=== PATIENT | male | born 1970 | race African-American/Black ===

== ENCOUNTER 2024-09-26 10:38 | Emergency (ER) | payer OTHER, SELFPAY ==
[2024-09-26 10:59] VITALS: BP 135/100; PULSE 101; RESP 16; TEMP 36.6; O2SAT 100
--- OUTSIDE RECORDS SUMMARY | 2024-09-26 11:10 | XMS_ITS | Clinical Summary ---
Author Organization [address] Address [address] [place] [phone] Care Team Providers Care Engineering Equipment Operator Name Role Phone Unknown, Notinfile Primary Care Provider Unavail able Allergies No known active allergies Medications lisinopriL (PRINIVIL,ZESTRI L) 40 mg tablet Take 1 tablet (40 mg total) by mouth daily Active hydroCHLOROthiaz brittany (HYDRODIURIL) 25 mg tablet Take 1 tablet (25 mg total) by mouth daily Active atorvastatin (LIPITOR) 20 mg tablet Take 1 tablet (20 mg total) by mouth daily Active Active Problems No known active problems Encounters Date Type Department Care Team Description 09/26/2024 9:15 AM DYE AUTOMATION OPERATOR Office Visit [facility] Convenient Care at [address] [phone] Jojo Reed NP Dizziness (Primary Dx); Weight loss, unintentional from Last 3 Months Social History Tobacco Use Types Packs/Day Years Used Date Smoking Tobacco: Never Assessed Sex and Gender Information Value Date Recorded Sex Assigned at Not on file Legal Sex Male 8:40 AM DYE AUTOMATION OPERATOR Gender Identity Not on file Sexual Orientation Not on file Obstetrics History Last Filed Vital Signs Vital Sign Reading Time Taken Comments Blood Pressure 130/88 09/26/2024 9:29 AM DYE AUTOMATION OPERATOR Pulse 85 09/26/2024 9:29 AM DYE AUTOMATION OPERATOR Temperature 36.9 ??C (98.5 ??F) 09/26/2024 9:29 AM CS T Respiratory Rate 20 09/26/2024 9:29 AM DYE AUTOMATION OPERATOR Oxygen Saturation 98% 09/26/2024 9:29 AM DYE AUTOMATION OPERATOR Inhaled Oxygen Concentration - - Weight 79.4 kg (175 lb) 09/26/2024 9:29 AM DYE AUTOMATION OPERATOR Height - - Body Mass Index - - Plan of Treatment Health Maintenance Due Date Last Done Comments Colon Cancer Screening-Colonoscopy 1968 Depression Screening 1968 Hepatitis C Screening 1968 Prostate Cancer Screening-PSA 1968 DTaP/Tdap/Td Vaccine (1 - Tdap) 02/28/1979 Hepatitis B Screening 02/28/1986 Regular Well Visit/Exam 18-64 02/28/1986 Zoster Vaccine (1 of 2) 02/28/2018 Influenza Vaccine (#1) 2024 Pneumococcal vaccine <65 Aged Out No longer eligible based on patient's age to complete this topic Procedures Procedure Name Priority Date/Time Associated Diagnosis Comments POC INFLUENZA A/B, COVID-19 ANTIGEN Routine 09/26/2024 9:51 AM DYE AUTOMATION OPERATOR Dizziness from Last 3 Months Results * POC Influenza A/B, COVID-19 antigen (09/26/2024 9:51 AM DYE AUTOMATION OPERATOR) Influenza A Ag, POC Negative Negative [facility] Influenza B Ag, POC Negative Negative [facility] COVID-19 Ag POC Presumptive Negative Presumptive Negative, Invalid [facility] Nasal 09/26/2024 9:51 AM DYE AUTOMATION OPERATOR Jojo Reed NP POINT OF CARE TEST ORDERABLES Final Result [facility] [address] [place] [address], [facility] from Last 3 Months Insurance [address] [facility] HMO/PPO Address: [facility] [address] [place] [address] Care Teams Engineering Equipment Operator Relationship Specialty Start Date End Date Unknown, Notinfile PCP - General 09/26/24
--- OUTSIDE RECORDS SUMMARY | 2024-09-26 11:10 | XMS_ITS | Encounter Summary ---
Author Organization [facility] Healthcare Address [address] [place] [address] Care Team Providers Care Corporate Director Talent Assessment Name Role Phone Unknown, Notinfile Primary Care Provider Unavail able Reason for Visit * Reason Comments Cough Cough, lightheaded, dizziness, congestion, hot and chills, slight body aches x 2 days C/o decreased appetite x 1 month Encounter Details Date Type Department Care Team (Latest Contact Info) Description 09/26/2024 9:15 AM AVICULTURIST Office Visit [facility] Medical Group Convenient Care at [id number] [place] [address] Jojo Reed NP [address] [facility] [address] [place], [place] [id number] Dizziness (Primary Dx); Weight loss, unintentional Social History Tobacco Use Types Packs/Day Years Used Date Smoking Tobacco: Never Assessed Sex and Gender Information Value Date Recorded Sex Assigned at Not on file Legal Sex Male 8:40 AM AVICULTURIST Gender Identity Not on file Sexual Orientation Not on file documented as of this encounter Last Filed Vital Signs Vital Sign Reading Time Taken Comments Blood Pressure 130/88 09/26/2024 9:29 AM AVICULTURIST Pulse 85 09/26/2024 9:29 AM AVICULTURIST Temperature 36.9 ??C (98.5 ??F) 09/26/2024 9:29 AM CS T Respiratory Rate 20 09/26/2024 9:29 AM AVICULTURIST Oxygen Saturation 98% 09/26/2024 9:29 AM AVICULTURIST Inhaled Oxygen Concentration - - Weight 79.4 kg (175 lb) 09/26/2024 9:29 AM AVICULTURIST Height - - Body Mass Index - - documented in this encounter Progress Notes * Jojo Reed NP - 09/26/2024 9:15 AM CST Images from the original note were not included. Patient ID: Hector Antunez is a 54 y.o. male followed by Unknown, Notinfile Chief Complaint Patient presents with Cough Cough, lightheaded, dizziness, congestion, hot and chills, slight body aches x 2 days C/o decreased appetite x 1 month Patient presents to the clinic with reports of cough, congestion, hot/cold chills, and body aches for 2 days. Patient is also reporting episodes of lightheadedness and dizziness that have been happening 2 to 3 times a day for the past 2 weeks. Patient also reports a 35 lb weight loss in the past 2 months without trying. Patient is a smoker of cigars. Denies loss of consciousness, fevers, and rash. He has taken mucinex and cold medications for his symptoms. Review of Systems Constitutional: Positive for appetite change and fatigue. Negative for chills and fever. HENT: Positive for congestion. Negative for ear pain, postnasal drip, rhinorrhea, sinus pressure and sore throat. Eyes: Negative for visual disturbance. Respiratory: Positive for cough. Negative for shortness of breath and wheezing. Cardiovascular: Negative for chest pain. Gastrointestinal: Negative for nausea. Musculoskeletal: Positive for myalgias. Neurological: Positive for dizziness and light-headedness. Negative for seizures and headaches. Vitals: 09/26/24 0929 BP: 130/88 Pulse: 85 Resp: 20 Temp: 36.9 ??C (98.5 ??F) SpO2: 98% Weight: 79.4 kg (175 lb) Recent Results (from the past 24 hours) POC Influenza A/B, COVID-19 antigen Collection Time: 09/26/24 9:51 AM Result Value Ref Range Influenza A Ag, POC Negative Negative Influenza B Ag, POC Negative Negative COVID-19 Ag POC Presumptive Negative Presumptive Negative, Invalid Physical Exam Vitals reviewed. Constitutional: General: He is not in acute distress. Appearance: Normal appearance. He is ill-appearing. HENT: Head: Normocephalic. Right Ear: Tympanic membrane, ear canal and external ear normal. No middle ear effusion. Tympanic membrane is not erythematous or bulging. Left Ear: Tympanic membrane, ear canal and external ear normal. No middle ear effusion. Tympanic membrane is not erythematous or bulging. Nose: Congestion present. No rhinorrhea. Mouth/Throat: Lips: [place]. Mouth: Mucous membranes are moist. Pharynx: Uvula midline. No pharyngeal swelling, oropharyngeal exudate or posterior oropharyngeal erythema. Eyes: Extraocular Movements: Right eye: Normal extraocular motion and no nystagmus. Left eye: Normal extraocular motion and no nystagmus. Cardiovascular: Rate and Rhythm: Normal rate and regular rhythm. Pulmonary: Effort: Pulmonary effort is normal. No respiratory distress. Breath sounds: Normal breath sounds. No decreased breath sounds or wheezing. Lymphadenopathy: Cervical: No cervical adenopathy. Skin: General: Skin is warm. Neurological: General: No focal deficit present. Mental Status: He is oriented to person, place, and time. Cranial Nerves: Cranial nerves 2-12 are intact. Sensory: Sensation is intact. Coordination: Coordination is intact. Psychiatric: Behavior: Behavior is cooperative. Diagnoses and all orders for this visit: Dizziness (Primary) - POC Influenza A/B, COVID-19 antigen Weight loss, unintentional Orders Placed This Encounter Procedures POC Influenza A/B, COVID-19 antigen Order Specific Question: Is the Patient experiencing symptoms consistent with COVID? Answer: Yes Assessment/Plan --Sending patient to ER for further workup of dizziness and lightheadedness to rule out neurological etiology. Also concern for unintentional weight loss. Patient and significant other verbalized understanding and state they will go to the nearest ER. Disposition Treatment plan including expectations, follow up, and return precautions discussed with patient/parent, verbalizes understanding. Medication dosage, use, and potential adverse reactions discussed with patient/parent. Advised to follow up with PCP if symptoms do not resolve as expected or sooner if condition worsens. Discussed Signs/symptoms warranting ER evaluation including worsening fever, increased shortness ofbreath, chest pain, severe N/V/D, or any other worrisome symptoms Patient and/or guardian was given an opportunity to ask questions, questions answered. Patient Education --TO ER Jojo Reed NP This office note has been partially dictated using [employer] software, and as a result portions of the record may have been created with this software. Occasional wrong-word or '[id number]' substitutions may have occurred due to the inherent limitations of voice recognition software. Read the chartcarefully and recognize, using context, where substitutions have occurred. Cosigned by Tavo Mendoza MD at 09/26/2024 10:10 AM AVICULTURIST ULTURIST ULTURIST documented in this encounter Plan of Treatment Not on file documented as of this encounter Procedures Procedure Name Priority Date/Time Associated Diagnosis Comments POC INFLUENZA A/B, COVID-19 ANTIGEN Routine 09/26/2024 9:51 AM AVICULTURIST Dizziness documented in this encounter Results * POC Influenza A/B, COVID-19 antigen (09/26/2024 9:51 AM AVICULTURIST) Influenza A Ag, POC Negative Negative [facility] Influenza B Ag, POC Negative Negative [facility] COVID-19 Ag POC Presumptive Negative Presumptive Negative, Invalid [facility] Nasal 09/26/2024 9:51 AM AVICULTURIST Jojo Reed NP POINT OF CARE TEST ORDERABLES Final Result [facility] [address] documented in this encounter Visit Diagnoses Diagnosis Dizziness- Primary Dizziness and giddiness Weight loss, unintentional Loss of weight documented in this encounter Historical Medications * This list may reflect changes made after this encounter. atorvastatin (LIPITOR) 20 mg tablet Take 1 tablet (20 mg total) by mouth daily hydroCHLOROthiazi de (HYDRODIURIL) 25 mg tablet Take 1 tablet (25 mg total) by mouth daily lisinopriL (PRINIVIL,ZESTRIL ) 40 mg tablet Take 1 tablet (40 mg total) by mouth daily added in this encounter Care Teams Corporate Director Talent Assessment Relationship Specialty Start Date End Date Unknown, Notinfile PCP - General 09/26/24 documented as of this encounter
--- OUTSIDE RECORDS SUMMARY | 2024-09-26 11:10 | XMS_ITS | Referral Summary ---
Author Organization [address] Address [address] [place] [phone] Care Team Providers Care Casket Trimmer Name Role Phone Unknown, Notinfile Primary Care Provider Unavail able Encounters Date Type Department Care Team Description 09/26/2024 9:15 AM SPRAY II PAINTER Office Visit [facility] Medical Group Convenient Care at [address] [phone] Jjoo Reed NP Dizziness (Primary Dx); Weight loss, unintentional from Last 3 Months Allergies No known active allergies Medications lisinopriL (PRINIVIL,ZESTRI L) 40 mg tablet Take 1 tablet (40 mg total) by mouth daily Active hydroCHLOROthiaz brittany (HYDRODIURIL) 25 mg tablet Take 1 tablet (25 mg total) by mouth daily Active atorvastatin (LIPITOR) 20 mg tablet Take 1 tablet (20 mg total) by mouth daily Active Active Problems No known active problems Social History Tobacco Use Types Packs/Day Years Used Date Smoking Tobacco: Never Assessed Sex and Gender Information Value Date Recorded Sex Assigned at Not on file Legal Sex Male 8:40 AM SPRAY II PAINTER Gender Identity Not on file Sexual Orientation Not on file Last Filed Vital Signs Vital Sign Reading Time Taken Comments Blood Pressure 130/88 09/26/2024 9:29 AM SPRAY II PAINTER Pulse 85 09/26/2024 9:29 AM SPRAY II PAINTER Temperature 36.9 ??C (98.5 ??F) 09/26/2024 9:29 AM CS T Respiratory Rate 20 09/26/2024 9:29 AM SPRAY II PAINTER Oxygen Saturation 98% 09/26/2024 9:29 AM SPRAY II PAINTER Inhaled Oxygen Concentration - - Weight 79.4 kg (175 lb) 09/26/2024 9:29 AM SPRAY II PAINTER Height - - Body Mass Index - - Plan of Treatment Not on file Procedures Procedure Name Priority Date/Time Associated Diagnosis Comments POC INFLUENZA A/B, COVID-19 ANTIGEN Routine 09/26/2024 9:51 AM SPRAY II PAINTER Dizziness from Last 3 Months Results * POC Influenza A/B, COVID-19 antigen (09/26/2024 9:51 AM SPRAY II PAINTER) Influenza A Ag, POC Negative Negative [facility] Influenza B Ag, POC Negative Negative [facility] COVID-19 Ag POC Presumptive Negative Presumptive Negative, Invalid [facility] Nasal 09/26/2024 9:51 AM SPRAY II PAINTER Jojo Reed NP POINT OF CARE TEST ORDERABLES Final Result Performing Organization Address City/State/[facility] Co de Phone Number [facility] [address] [place] [address], [facility] from Last 3 Months Insurance [facility] H[facility]/PPO Address: [facility] [address] [place] [address] Care Teams Casket Trimmer Relationship Specialty Start Date End Date Unknown, Notinfile PCP - General 09/26/24
--- NOTE | 2024-09-26 12:59 | PC.NURSE ---
Patient reports that he is not staying to be seen-encouraged to return for worsening symptoms
--- OUTSIDE RECORDS SUMMARY | 2024-09-26 13:11 | XMS_ITS | Clinical Summary ---
Author Organization [address] Address [address] [place] [phone] Care Team Providers Care Bias Cutting Machine Operator Name Role Phone Unknown, Notinfile Primary [...] Department Care Team Description 09/26/2024 9:15 AM NEGATIVE CUTTER Office Visit [facility] Medical Group Convenient Care at [address] [phone] Jojo Reed NP Dizziness (Primary Dx); Weight loss, unintentional from Last 3 Months Social History Tobacco Use Types Packs/Day Years Used Date Smoking Tobacco: Never Assessed Sex and Gender Information Value Date Recorded Sex Assigned at Not on file Legal Sex Male 8:40 AM NEGATIVE CUTTER Gender Identity Not on file Sexual Orientation Not on file Obstetrics History Last Filed Vital Signs Vital Sign Reading Time Taken Comments Blood Pressure 130/88 09/26/2024 9:29 AM NEGATIVE CUTTER Pulse 85 09/26/2024 9:29 AM NEGATIVE CUTTER Temperature 36.9 ??C (98.5 ??F) 09/26/2024 9:29 AM CS T Respiratory Rate 20 09/26/2024 9:29 AM NEGATIVE CUTTER Oxygen Saturation 98% 09/26/2024 9:29 AM NEGATIVE CUTTER Inhaled Oxygen Concentration - - Weight 79.4 kg (175 lb) 09/26/2024 9:29 AM NEGATIVE CUTTER Height - - Body Mass Index - [...] A/B, COVID-19 ANTIGEN Routine 09/26/2024 9:51 AM NEGATIVE CUTTER Dizziness from Last 3 Months Results * POC Influenza A/B, COVID-19 antigen (09/26/2024 9:51 AM NEGATIVE CUTTER) Influenza A Ag, POC Negative Negative [facility] Influenza B Ag, POC Negative Negative [facility] COVID-19 Ag POC Presumptive Negative Presumptive Negative, Invalid [facility] Nasal 09/26/2024 9:51 AM NEGATIVE CUTTER Jojo Reed NP POINT OF CARE TEST ORDERABLES Final Result [facility] [address] [place] [address], [facility] from Last 3 Months Insurance [address] CHOICE [facility] H[facility]/PPO Address: [facility] [address] [place] [address] Care Teams Bias Cutting Machine Operator Relationship Specialty Start Date End Date Unknown, Notinfile PCP - General 09/26/24
--- OUTSIDE RECORDS SUMMARY | 2024-09-26 13:11 | XMS_ITS | Referral Summary ---
Author Organization [address] Address [address] [place] [phone] Care Team Providers Care Washroom Attendant Name Role Phone Unknown, Notinfile Primary Care Provider Unavail able Encounters Date Type Department Care Team Description 09/26/2024 9:15 AM LOAN REVIEW OFFICER Office Visit [facility] Medical Group Convenient Care at [address] [phone] Jojo Reed NP Dizziness (Primary [...] on file Legal Sex Male 8:40 AM LOAN REVIEW OFFICER Gender Identity Not on file Sexual Orientation Not on file Last Filed Vital Signs Vital Sign Reading Time Taken Comments Blood Pressure 130/88 09/26/2024 9:29 AM LOAN REVIEW OFFICER Pulse 85 09/26/2024 9:29 AM LOAN REVIEW OFFICER Temperature 36.9 ??C (98.5 ??F) 09/26/2024 9:29 AM CS T Respiratory Rate 20 09/26/2024 9:29 AM LOAN REVIEW OFFICER Oxygen Saturation 98% 09/26/2024 9:29 AM LOAN REVIEW OFFICER Inhaled Oxygen Concentration - - Weight 79.4 kg (175 lb) 09/26/2024 9:29 AM LOAN REVIEW OFFICER Height - - Body Mass Index - - Plan of Treatment Not on file Procedures Procedure Name Priority Date/Time Associated Diagnosis Comments POC INFLUENZA A/B, COVID-19 ANTIGEN Routine 09/26/2024 9:51 AM LOAN REVIEW OFFICER Dizziness from Last 3 Months Results * POC Influenza A/B, COVID-19 antigen (09/26/2024 9:51 AM LOAN REVIEW OFFICER) Influenza A Ag, POC Negative Negative [facility] Influenza B Ag, POC Negative Negative [facility] COVID-19 Ag POC Presumptive Negative Presumptive Negative, Invalid [facility] Nasal 09/26/2024 9:51 AM LOAN REVIEW OFFICER Jojo Reed NP POINT OF CARE TEST ORDERABLES Final Result Performing Organization Address City/State/[facility] Co de Phone Number [facility] [address] [place] [address], [facility] from Last 3 Months Insurance [facility] HMO/PPO Address: [facility] [address] [place] [address] Care Teams Washroom Attendant Relationship Specialty Start Date End Date Unknown, Notinfile PCP - General 09/26/24
--- OUTSIDE RECORDS SUMMARY | 2024-09-26 13:11 | XMS_ITS | Encounter Summary ---
Author Organization [facility] Healthcare Address [address] [place] [address] Care Team Providers Care Plastic Parts Designer Name Role Phone Unknown, Notinfile Primary Care Provider Unavail able Reason for Visit * Reason Comments Cough Cough, lightheaded, dizziness, congestion, hot and chills, slight body aches x 2 days C/o decreased appetite x 1 month Encounter Details Date Type Department Care Team (Latest Contact Info) Description 09/26/2024 9:15 AM ACCESS SPEC Office Visit [facility] Medical Group Convenient Care at [address] [place] [address] Jojo Reed NP [address] [facility] [address] [place], [place] [id number] Dizziness (Primary Dx); Weight loss, unintentional Social History Tobacco Use Types Packs/Day Years Used Date Smoking Tobacco: Never Assessed Sex and Gender Information Value Date Recorded Sex Assigned at Not on file Legal Sex Male 8:40 AM ACCESS SPEC Gender Identity Not on file Sexual Orientation Not on file documented as of this encounter Last Filed Vital Signs Vital Sign Reading Time Taken Comments Blood Pressure 130/88 09/26/2024 9:29 AM ACCESS SPEC Pulse 85 09/26/2024 9:29 AM ACCESS SPEC Temperature 36.9 ??C (98.5 ??F) 09/26/2024 9:29 AM CS T Respiratory Rate 20 09/26/2024 9:29 AM ACCESS SPEC Oxygen Saturation 98% 09/26/2024 9:29 AM ACCESS SPEC Inhaled Oxygen Concentration - - Weight 79.4 kg (175 lb) 09/26/2024 9:29 AM ACCESS SPEC Height - - Body Mass Index - [...] Nose: Congestion present. No rhinorrhea. Mouth/Throat: Lips: [place]. Mouth: Mucous membranes are moist. Pharynx: Uvula [...] office note has been partially dictated using [employer] software, and as a result portions of the record may have been created with this software. Occasional wrong-word or '[id number]' substitutions may have occurred due to the inherent limitations of voice recognition software. Read the chartcarefully and recognize, using context, where substitutions have occurred. Cosigned by Tavo Mendoza MD at 09/26/2024 10:10 AM ACCESS SPEC SS SPEC SS SPEC documented in this encounter Plan of Treatment Not on file documented as of this encounter Procedures Procedure Name Priority Date/Time Associated Diagnosis Comments POC INFLUENZA A/B, COVID-19 ANTIGEN Routine 09/26/2024 9:51 AM ACCESS SPEC Dizziness documented in this encounter Results * POC Influenza A/B, COVID-19 antigen (09/26/2024 9:51 AM ACCESS SPEC) Influenza A Ag, POC Negative Negative [facility] Influenza B Ag, POC Negative Negative [facility] COVID-19 Ag POC Presumptive Negative Presumptive Negative, Invalid [facility] Nasal 09/26/2024 9:51 AM ACCESS SPEC Jojo Reed NP POINT OF CARE TEST ORDERABLES Final Result [facility] ED[facility] [address] documented in this encounter Visit Diagnoses [...] daily added in this encounter Care Teams Plastic Parts Designer Relationship Specialty Start Date End Date Unknown, Notinfile PCP - General 09/26/24 documented as of this encounter
== END 2024-09-26 13:09 | disposition left against medical advice (07) ==
DX: R42 Dizziness and giddiness (principal)
CPT/HCPCS: 99199

== ENCOUNTER 2024-10-09 14:36 | Outpatient (CLI) | payer OTHER, SELFPAY ==
--- NOTE | ~2024-10-09 | XR_ITS ---
EXAMINATION: XR chest 2V Exam Date/Time: 10/09/2024 14:45 TOBACCO HANGER HISTORY: UNINTENTIONAL WEIGHT LOSS, NAUSEA Comparison: None. RESULT: Lines, tubes, and devices: None. Lungs and pleura: Clear. Cardiomediastinal silhouette: Unremarkable. Other: Moderate anterior wedge deformity of a midthoracic vertebral body, likely T7. Mild anterior w edge deformity likely at T8 and T9. Moderate bilateral glenohumeral osteoarthritis. No acute upper ab dominal finding. IMPRESSION: No acute cardiopulmonary process. Acute versus chronic moderate and mild anterior compression deformities in the mid thoracic spine, co rrelate with history of trauma or acute pain/tenderness. Comparison to outside studies would be helpf ul if available. Reviewed, dictated and finalized at location K. [facility] HANGER IMPRESSION: No acute cardiopulmonary process. Acute versus chronic moderate and mild anterior compression deformities in the mid thoracic spine, correlate with history of trauma or acute pain/tenderness. Comparison to outside studies would be helpful if available.
--- OUTSIDE RECORDS SUMMARY | 2024-10-09 17:24 | XMS_ITS | Referral Summary ---
Author Organization [address] [address] Care Team Providers Care Drill Sharpener Name Role Phone Unknown, Notinfile Primary Care Provider Unavail able Encounters Date Type Department Care Team Description 09/26/2024 9:15 AM NIPPING MACHINE OPERATOR Office Visit [facility] Medical Group Convenient Care at [address] [phone] Jojo Reed NP Dizziness (Primary [...] on file Legal Sex Male 8:40 AM NIPPING MACHINE OPERATOR Gender Identity Not on file Sexual Orientation Not on file Last Filed Vital Signs Vital Sign Reading Time Taken Comments Blood Pressure 130/88 09/26/2024 9:29 AM NIPPING MACHINE OPERATOR Pulse 85 09/26/2024 9:29 AM NIPPING MACHINE OPERATOR Temperature 36.9 C (98.5 F) 09/26/2024 9:29 AM NIPPING MACHINE OPERATOR Respiratory Rate 20 09/26/2024 9:29 AM NIPPING MACHINE OPERATOR Oxygen Saturation 98% 09/26/2024 9:29 AM NIPPING MACHINE OPERATOR Inhaled Oxygen Concentration - - Weight 79.4 kg (175 lb) 09/26/2024 9:29 AM NIPPING MACHINE OPERATOR Height - - Body Mass Index - - Plan of Treatment Not on file Procedures Procedure Name Priority Date/Time Associated Diagnosis Comments POC INFLUENZA A/B, COVID-19 ANTIGEN Routine 09/26/2024 9:51 AM NIPPING MACHINE OPERATOR Dizziness from Last 3 Months Results * POC Influenza A/B, COVID-19 antigen (09/26/2024 9:51 AM NIPPING MACHINE OPERATOR) Influenza A Ag, POC Negative Negative [facility] Influenza B Ag, POC Negative Negative [facility] COVID-19 Ag POC Presumptive Negative Presumptive Negative, Invalid [facility] Nasal 09/26/2024 9:51 AM NIPPING MACHINE OPERATOR Jojo Reed NP POINT OF CARE TEST ORDERABLES Final Result [facility] [address] [place] [address], [facility] from Last 3 Months Insurance [address] [place] [address] Care Teams Drill Sharpener Relationship Specialty Start Date End Date Unknown, Notinfile PCP - General 09/26/24
--- OUTSIDE RECORDS SUMMARY | 2024-10-09 17:24 | XMS_ITS | Data Portability ---
Author Organization [facility] Address [address] [facility] [place] [address] Assessment Encounter Date Assessment Date Assessment LastModified by Organization Details LastModified Time 10/05/2024 10/05/2024 It is quite possible that after three years of minimal activity, he is now busy and more active and hence the weight loss. His DBP is 90, he did not complain of dizziness today, but the possibility of too rigid BP control with the weight loss and the same BP regimen, may warrant a tapering of his regimen when he follows up. oajao Not available 10/05/2024 15:36:20 Plan of Treatment Reminders Order Date Submit Date Provider Last Modified By Organization Details Last Modified Time Details Appointments ANY 15 2024 02:45P Wanda Patel MD Not available Not available Not available Lab urinalysi s macro (dipstick ) panel, urine 2024 025 [facility], [address] [facility], [facility] [address], [place], [address], 10/05/2024 14:29:48 CMP, serum or plasma 2024 025 [facility], [address] [facility], [address], [place], [address], 10/05/2024 14:29:49 CBC w/ auto diff 2024 025 [facility], [address] [facility], [address], [place], [address], 10/05/2024 14:29:48 lipid panel, serum 2024 025 [facility], [address], [place], [address], 10/05/2024 14:29:47 Hepatitis C IgG Ab, qual, serum 2024 025 [facility], [address], [address], [place], [address], 10/05/2024 14:29:47 HIV 1 + 2, meaningfu l use set 2024 025 [facility], [address], [address], [place], [address], 10/05/2024 14:29:47 vitamin D, 25-hydrox y, total, serum 2024 025 [facility], [address] [facility] [address], [address], [place], [address], 10/05/2024 14:29:48 HbA1c (hemoglob in A1c), blood 2024 025 [facility], [address] [facility] [address], [address], [place], [address], 10/05/2024 14:55:48 TSH, ultra-sen sitive, serum 2024 025 [facility], [address] [facility] [address], [address], [place], [address], 10/05/2024 14:31:18 Referral gastroent erologist referral 2024 025 [facility], [address], [id number], [place], [address], 10/05/2024 17:15:32 Procedures None recorded. Surgeries None recorded. Imaging XR, chest, 2 view - Weight loss, smoker 2024 025 [facility], [address], [place], [address], 10/09/2024 16:40:32 Medication Orders atorvasta tin 40 mg tablet 2024 025 [facility], [address] [place], [address], 10/05/2024 14:55:50 ezetimibe 10 mg tablet 2024 025 [facility], [address] [place], [address], 10/05/2024 14:55:49 amlodipin e 10 mg tablet 2024 025 [facility], [address] [place], [address], 10/05/2024 14:55:51 hydrochlo rothiazid e 25 mg tablet 2024 025 [facility], [address] [place], [address], 10/05/2024 14:55:48 Patient TargetsNo targets recorded. Patient Instructions Encounter Date Encounter Id Patient Instructions Last Modified By Organization Details Last Modified Time 10/05/2024 [id number] tetanus and diphtheria booster: care instructions oajao Not available 10/05/2024 14:51:54 anorexia: care instructions oajao Not available 10/05/2024 14:51:54 high blood pressure: care instructions oajao Not available 10/05/2024 14:51:54 learning about high blood pressure oajao Not available 10/05/2024 14:51:54 ER report (Left before he was seen) Labs CXR Continue the current medication regimen GI Follow up in 4 weeks oajao Not available 10/05/2024 15:00:37 Detailed initial visit oajao Not available 10/05/2024 15:37:01 Reason for Referral Financial Analyst Accountant Referral for Screening for malignant neoplasm of colon 35 lb weight loss, colon cancer screening Referring Physician: Matt Patel, Internal Medicine, Encounter Date: 10/05/2024 Results Created Date Observation Date Name Description Value Unit Range Abnormal Flag Note LastModifiedBy Organization Detail LastModifiedTime 09/26/1909/26/2024 SARS- CoV+S ARS-C oV-2 (COVI D-19) Ag [Pres ence] in Respi rator y syste m speci men by Rapid immun oassa y influenza A Ag, POC NEGATI VE text: negati ve Influ mimi A Ag, POC Negat radha Negat radha [facility] Not Available Not Available 10/04/2024 15:12:31 09/26/1909/26/2024 SARS- CoV+S ARS-C oV-2 (COVI D-19) Ag [Pres ence] in Respi rator y syste m speci men by Rapid immun oassa y influenza B Ag, POC NEGATI VE text: negati ve Influ mimi B Ag, POC Negat radha Negat radha [facility] EDW Not Available Not Available 10/04/2024 15:12:31 09/26/1909/26/2024 SARS- CoV+S ARS-C oV-2 (COVI D-19) Ag [Pres ence] in Respi rator y syste m speci men by Rapid immun oassa y covid-19 Ag POC PRESUM PTIVE NEGATI VE text: presum ptive negati ve, invali d COVID -19 Ag POC Presu mptiv e Negat radha Presu mptiv e Negat radha, Inval id [facility] EDW Not Available Not Available 10/04/2024 15:12:31 09/26/1909/26/2024 SARS- CoV+S ARS-C oV-2 (COVI D-19) Ag [Pres ence] in Respi rator y syste m speci men by Rapid immun oassa y interpretati on and review of laboratory results NORMAL Not Available Not Available 09/23 15:12:31 10/09/1910/09/2024 XR, chest , 2 view No observ ation record ed. [place] [id number], [place], [address], 10/09/2024 16:40:32 Result Notes None recorded. Problems Name Problem SNOMED Code Status Onset Date Resolution Date Notes Provider Name and Address Organization Details Recorded Time Benign essential hypertension 0344395 Active 2024 Matt Patel MD Attn: Joya maeve,[address] [facility], [place], [address], [place] [facility] 5 14:32:18 Disorder of lipid metabolism 198486547 Active 2024 Matt Patel MD Attn: Joya mcfarlane,[address] [facility], [place], [address], [place] [facility] 5 14:32:20 Influenza vaccination declined 892088533 Active 2024 Matt Patel MD Attn: Joya mcfarlane,[address] [facility], [place], [address], [place] [facility] 5 15:00:01 Problem Notes None recorded. Procedures Surgical History None recorded. Imaging Results Imaging Date Name Status LastModified by Organiz ation Details LastModified Time 10/09/2024 XR, chest, 2 view active [place] [address], [place], [address], 10/09/2024 16:40:32 Procedure Notes None recorded. Medical Equipment None Reported. Allergies No known drug allergies Medications Name Sig Start Date Stop Date Status Note LastModified by Organization Details LastModified Time atorvastatin 40 mg tablet Take 1 tablet every day by oral route as directed for 90 days, for Cholester ol. 2024 active Not Available Not Available Not Avai lable amlodipine 10 mg tablet Take 1 tablet every day by oral route as directed for 90 days, for HTN. 2024 active Not Available Not Available Not Avai lable hydrochlorothi azide 25 mg tablet Take 1 tablet every day by oral route as directed for 90 days, for HTN. 2024 active Not Available Not Available Not Avai lable ezetimibe 10 mg tablet Take 1 tablet every day by oral route around the clock for 90 days, for Cholester ol. 2024 active Not Available Not Available Not Avai lable Vitals Date Recorded Body height Body mass index (BMI) Body weight Heart rate Oxygen saturation Oxygen saturation in Arterial blood by Pulse oximetry Respiratory rate Body temperature Systolic blood pressure Diastolic blood pressure Provider Name and Address Organization Details Last Updated DateTime 180.34 cm 24.4 kg/m2 70939.6 6 g 86 /min 98 % 98 % 18 /min 98.5 [degF] 124 mm[Hg] 90 mm[Hg] Yue Laws [place] [facility] 14:26:05 Social History Question Answer Notes LastModified by Organizat ion Details LastModified Time Tobacco Smoking Status Current Some Day Smoker Cigars Stopped 3 weeks ago Matt Patel MD Attn: [facility] [place], [address], [facility] 10/05/2024 14:38:57 What Is Your Level Of Alcohol Consumption? None Information not available 10/05/2024 What Is Your Level Of Caffeine Consumption? Occasional Information not available 10/05/2024 What Was The Date Of Your Most Recent Tobacco Screening? 10/05/2024 Information not available 10/05/2024 What Is Your Current Pack Years? 10packyears Information not available 10/05/2024 At What Age Did You Start Smoking Tobacco? 48 Information not available 10/05/2024 How Much Tobacco Do You Smoke? 1 PPW Information not available 10/05/2024 Do You Use Any Illicit Or Recreational Drugs? No Information not available 10/05/2024 Has Tobacco Cessation Counseling Been Provided? Yes Information not available 10/05/2024 On What Date Was Tobacco Cessation Counseling Provided? 10/05/2024 Information not available 10/05/2024 How Many Years Have You Smoked Tobacco? 5 Information not available 10/05/2024 Sex: Unknown Functional Status None recorded. Mental Status None recorded. Family History Relationship Description Onset Age of this Age Resolved Age Notes LastModified by Organization Details LastModified Time Mother Hypertensive disorder [email or web address] Not available 2024 14:22:41 Medical History Condition Response Coronary Artery Disease N Other N High Blood Pressure Y Atrial Fibrillation N Kidney or Bladder Problems N Thyroid Problems N GI Problems N Depression N COPD N Blood Clots N Have you had a mammogram in the last yea r? N Skin Problems N Anemia N Heart Attack (NE) N Anxiety Disorder N Diabetes N Muscle, Joint, or Bone Problems N Seizures/Epilepsy N Have you had a colonoscopy in the last 1 0 years? N Acid Reflux (GERD) N Cancer N Stroke N Asthma N Allergies N Have you had a PSA blood test in the las t year? N High Cholesterol Y Hepatitis N Liver Disease N Headaches N Heart Failure N Osteoporosis N Immunizations Vaccine Type Date Status Note Provider Alejandro rodriguez and Address Organization Details Recorded Time COVID-19, mRNA, LNP-S, PF, 100 mcg/0.5mL dose or 50 mcg/0.25mL dose 2 completed HERIBERTO Mon, [place] - [facility] 10/05/2024 14:18:59 COVID-19, mRNA, LNP-S, PF, 100 mcg/0.5mL dose or 50 mcg/0.25mL dose 2 completed HERIBERTO Mon, [place] [facility] 10/05/2024 14:18:59 COVID-19, mRNA, LNP-S, PF, 100 mcg/0.5mL dose or 50 mcg/0.25mL dose 2 completed HERIBERTO Mon [place] - [facility] 10/05/2024 14:18:59 Tdap 5 completed HERIBERTO Mon [place] [facility] 10/06/2024 12:40:19 Pneumococcal conjugate PCV20, polysaccharide [id number] conjugate, adjuvant, PF 5 completed HERIBERTO Mon [place] - [facility] 10/06/2024 12:40:20 Past Encounters Encounter ID Performer Location Encounter Start Date Encounter Closed Date Diagnosis/Indication Diagnosis SNOMED-CT Code Diagnosis ICD10 Code Diagnosis Note [id number] Matt Patel MD [facility] [address] [place] [phone] 10/05/2024 14:05:50 10/06/2024 14:32:54 General examination of patient 696479039 Z00.01 Unintentio nal weight loss 428551718 R63.4 Loss of appetite 8150812 6 R63.0 Benign ess ential hypertension 8278293 I10 Disorder o f lipid metabolism 567263699 E78.9 Influenza vaccination declined 805972199 Z28.21 Administra tion of diphtheria, pertussis, and tetanus vaccine 880798814 Z23 Administra tion of pneumococcal vaccine 95853792 Z23 Screening for malignant neoplasm of colon 411514630 Z12.11 Screening for malignant neoplasm of prostate 683361201 Z12.5 Medication monitoring 39 6477402 Z51.81 Health Concerns Section Related Observation LastModified by Organization Detai ls LastModified Time None Recorded Concern Status LastModified by Organization Details LastModified Time None Recorded Advance Directives Directive None Recorded Payers Encounter Date Sequence Insurance Name Policy Number Policy Headley Covered Member ID Headley Member ID Guarantor Name 10/05/2024 1 [facility] [id number] Hector Antunez [id number] Hector Antunez Notes Date Note Type Note Provider Name and Address Organization Details Recorded Time 10/05/2024 text/html I was incarcerated and after I got out I didn't have primary care Doc, I lost like 35 lbs in the last three months 54 y/o BM who presents as a new patient, he was just released after being incarcerated for three years. He was in his USOH and presented to a walk clinic with dizziness, Flu like symptoms and he was sent to the ER where he left before he was seen due to the long wait. He feels well now but he has no appetite and cannot explain the weight loss. There is no cough, SOB, fever, abdominal pain or change in BM. He is fully employed, he recently got and he denies any symptoms of depression. PMHX. HTN, Hypercholesterolem ia, Ex Tobacco smoker. Matt Patel MD Attn: [address] [place], [address], [facility] 10/05/2024 15:37:06
--- OUTSIDE RECORDS SUMMARY | 2024-10-09 17:24 | XMS_ITS | Clinical Summary ---
Author Organization [facility] [address] Address [address] [place] [address] Care Team Providers Care Iron Pourer Name Role Phone Unknown, Notinfile Primary Care [...] Department Care Team Description 09/26/2024 9:15 AM PROBATION WORKER Office Visit [facility] at [address] [phone] Jojo Reed NP Dizziness (Primary Dx); Weight loss, unintentional from Last 3 Months Social History Tobacco Use Types Packs/Day Years Used Date Smoking Tobacco: Never Assessed Sex and Gender Information Value Date Recorded Sex Assigned at Not on file Legal Sex Male 8:40 AM PROBATION WORKER Gender Identity Not on file Sexual Orientation Not on file Obstetrics History Last Filed Vital Signs Vital Sign Reading Time Taken Comments Blood Pressure 130/88 09/26/2024 9:29 AM PROBATION WORKER Pulse 85 09/26/2024 9:29 AM PROBATION WORKER Temperature 36.9 C (98.5 F) 09/26/2024 9:29 AM PROBATION WORKER Respiratory Rate 20 09/26/2024 9:29 AM PROBATION WORKER Oxygen Saturation 98% 09/26/2024 9:29 AM PROBATION WORKER Inhaled Oxygen Concentration - - Weight 79.4 kg (175 lb) 09/26/2024 9:29 AM PROBATION WORKER Height - - Body Mass Index - [...] A/B, COVID-19 ANTIGEN Routine 09/26/2024 9:51 AM PROBATION WORKER Dizziness from Last 3 Months Results * POC Influenza A/B, COVID-19 antigen (09/26/2024 9:51 AM PROBATION WORKER) Influenza A Ag, POC Negative Negative [facility] Influenza B Ag, POC Negative Negative [facility] COVID-19 Ag POC Presumptive Negative Presumptive Negative, Invalid [facility] Nasal 09/26/2024 9:51 AM PROBATION WORKER Jojo Reed NP POINT OF CARE TEST ORDERABLES Final Result Performing Organization Address City/State/[facility] Co de Phone Number [facility] [address] [place] [address], [facility] from Last 3 Months Insurance [address] [place] [address] Care Teams Iron Pourer Relationship Specialty Start Date End Date Unknown, Notinfile PCP - General 09/26/24
== END 2024-10-09 14:37 | disposition home or self-care (01) ==
PROVIDERS: PCP Internal Medicine Infectious Disease; Visit Provider Internal Medicine Infectious Disease
DX: R63.4 Abnormal weight loss (principal); R11.0 Nausea
CPT/HCPCS: 71046

== ENCOUNTER 2024-10-10 15:12 | Emergency (ER) | payer OTHER, SELFPAY ==
[2024-10-10] VITALS (13 sets, daily range): BP systolic 107–129; BP diastolic 79–84; PULSE 54–82; RESP 13–21; TEMP 36.4; O2SAT 97–100
--- NOTE | ~2024-10-10 | XR_ITS ---
EXAMINATION: XR chest 2V DATE: 10/10/2024 15:52 INDICATION: Dizziness. Abnormal labs. TECHNIQUE: Frontal and lateral views of the chest were obtained. COMPARISON: Chest 2 views 10/09/2024 FINDINGS: There is no pneumonia, pleural effusion, or pneumothorax. The heart size is normal. There i s anterior wedging of multiple mid thoracic vertebral bodies, likely chronic. IMPRESSION: 1. No acute cardiopulmonary disease. Reviewed, dictated and finalized at location A. N [facility]
--- OUTSIDE RECORDS SUMMARY | 2024-10-10 15:14 | XMS_ITS | Referral Summary ---
Author Organization [address] [address] Care Team Providers Care Senior Geotechnical Engineer Name Role Phone Unknown, Notinfile Primary Care Provider Unavail able Encounters Date Type Department Care Team Description 09/26/2024 9:15 AM WALNUT DEHYDRATOR OPERATOR Office Visit [facility] Con[facility]ient Care at [address] [phone] Jojo Reed NP Dizziness (Primary [...] on file Legal Sex Male 8:40 AM WALNUT DEHYDRATOR OPERATOR Gender Identity Not on file Sexual Orientation Not on file Last Filed Vital Signs Vital Sign Reading Time Taken Comments Blood Pressure 130/88 09/26/2024 9:29 AM WALNUT DEHYDRATOR OPERATOR Pulse 85 09/26/2024 9:29 AM WALNUT DEHYDRATOR OPERATOR Temperature 36.9 C (98.5 F) 09/26/2024 9:29 AM WALNUT DEHYDRATOR OPERATOR Respiratory Rate 20 09/26/2024 9:29 AM WALNUT DEHYDRATOR OPERATOR Oxygen Saturation 98% 09/26/2024 9:29 AM WALNUT DEHYDRATOR OPERATOR Inhaled Oxygen Concentration - - Weight 79.4 kg (175 lb) 09/26/2024 9:29 AM WALNUT DEHYDRATOR OPERATOR Height - - Body Mass Index - - Plan of Treatment Not on file Procedures Procedure Name Priority Date/Time Associated Diagnosis Comments POC INFLUENZA A/B, COVID-19 ANTIGEN Routine 09/26/2024 9:51 AM WALNUT DEHYDRATOR OPERATOR Dizziness from Last 3 Months Results * POC Influenza A/B, COVID-19 antigen (09/26/2024 9:51 AM WALNUT DEHYDRATOR OPERATOR) Influenza A Ag, POC Negative Negative [facility] Influenza B Ag, POC Negative Negative [facility] COVID-19 Ag POC Presumptive Negative Presumptive Negative, Invalid [facility] Nasal 09/26/2024 9:51 AM WALNUT DEHYDRATOR OPERATOR Jojo Reed NP POINT OF CARE TEST ORDERABLES Final Result [facility] [address] [place] [address], [facility] from Last 3 Months Insurance [address] [place] [address] Care Teams Senior Geotechnical Engineer Relationship Specialty Start Date End Date Unknown, Notinfile PCP - General 09/26/24
--- OUTSIDE RECORDS SUMMARY | 2024-10-10 15:14 | XMS_ITS | Clinical Summary ---
Author Organization [facility] [address] [place] [address] Address [address] [place] [phone] Care Team Providers Care Broomcorn Thresher Name Role Phone Unknown, Notinfile Primary Care [...] Department Care Team Description 09/26/2024 9:15 AM WIND SCIENCE AND PLANNING Office Visit [facility] Con[facility] at [address] [phone] Jojo Reed NP Dizziness (Primary Dx); Weight loss, unintentional from Last 3 Months Social History Tobacco Use Types Packs/Day Years Used Date Smoking Tobacco: Never Assessed Sex and Gender Information Value Date Recorded Sex Assigned at Not on file Legal Sex Male 8:40 AM WIND SCIENCE AND PLANNING Gender Identity Not on file Sexual Orientation Not on file Obstetrics History Last Filed Vital Signs Vital Sign Reading Time Taken Comments Blood Pressure 130/88 09/26/2024 9:29 AM WIND SCIENCE AND PLANNING Pulse 85 09/26/2024 9:29 AM WIND SCIENCE AND PLANNING Temperature 36.9 C (98.5 F) 09/26/2024 9:29 AM WIND SCIENCE AND PLANNING Respiratory Rate 20 09/26/2024 9:29 AM WIND SCIENCE AND PLANNING Oxygen Saturation 98% 09/26/2024 9:29 AM WIND SCIENCE AND PLANNING Inhaled Oxygen Concentration - - Weight 79.4 kg (175 lb) 09/26/2024 9:29 AM WIND SCIENCE AND PLANNING Height - - Body Mass Index - [...] A/B, COVID-19 ANTIGEN Routine 09/26/2024 9:51 AM WIND SCIENCE AND PLANNING Dizziness from Last 3 Months Results * POC Influenza A/B, COVID-19 antigen (09/26/2024 9:51 AM WIND SCIENCE AND PLANNING) Influenza A Ag, POC Negative Negative [facility] Influenza B Ag, POC Negative Negative [facility] COVID-19 Ag POC Presumptive Negative Presumptive Negative, Invalid [facility] Nasal 09/26/2024 9:51 AM WIND SCIENCE AND PLANNING Jojo Reed NP POINT OF CARE TEST ORDERABLES Final Result Performing Organization Address City/State/[facility] Co de Phone Number [facility] [address] [place] [address], [facility] from Last 3 Months Insurance [address] CHOICE PLUS Care Teams Broomcorn Thresher Relationship Specialty Start Date End Date Unknown, Notinfile PCP - General 09/26/24
--- NOTE | 2024-10-10 15:17 | ECG_ITS ---
Test Date: 2024-10-10 15:24:54 Measurements Intervals [place] Rate: 82 P: 61 TX: 142 QRS: -11 QRSD: 85 T: 15 QT: 378 QTc: 443 Interpretive Statements SINUS RHYTHM CONSIDER RIGHT VENTRICULAR CONDUCTION DELAY CONSIDER ANTERIOR INFARCT, AGE INDETERMINATE BORDERLINE T WAVE ABNORMALITY- INFERIOR LEADS BASELINE ARTIFACT- I, II, AVR, AVL, AVF ABNORMAL ECG No previous ECG available for comparison Electronically Signed On 10-10-2024 17:42:51 WEB CONTENT & SOCIAL MEDIA MANAGER by Goerge Jackson D.O.
[2024-10-10 15:38] LABS: Basophils Percent Auto 0.7 % (0.2-1.2); Eosinophils Absolute Auto 0.3 K/mm3 (0-0.3); Eosinophils Percent Auto 6.2 % (0-4.4); Hematocrit 40.3 % (42.0-52.0); Immature Granulocyte Absolute 0.01 K/mm3 (0.00-0.031); Immature Granulocyte Percent A 0.2 % (0-0.5); Lymphocytes Absolute Auto 1.86 K/mm3 (0.9-3.2); Lymphocytes Percent Auto 34.1 % (18.3-44.2); Mean Corpuscular HGB Conc 34.7 g/dl (32-36); Mean Corpuscular Hemoglobin 30.6 pg (26-34); Mean Platelet Volume 9.6 fl (7.4-10.4); Monocytes Absolute Auto 0.8 K/mm3 (0.1-0.6); Monocytes Percent Auto 13.8 % (2.6-8.5); Neutrophils Absolute Auto 2.5 K/mm3 (1.3-6.7); Platelet Count Result 264 k/mm3 (150-375); Red Blood Count 4.58 M/mm3 (4.6-6.20); Red Cell Distribution Width 14.8 % (11.5-14.5); White Blood Count 5.5 K/mm3 (4.5-10.0)
[2024-10-10 15:48] LABS: Alanine Aminotransferase 26 U/L (6-50); Alkaline Phosphatase 62 U/L (38-126); Anion Gap 11 mmol/L (4-12); Aspartate Amino Transferase 36 U/L (17-59); Bilirubin,Total 0.6 mg/dL (0.2-1.3); Blood Urea Nitrogen 18 mg/dL (9-20); Calcium 9.4 mg/dL (8.4-10.2); Carbon Dioxide 26 mmol/L (22-30); Chloride 103 mmol/L (98-107); Estimated CRCL calculation 77 ml/min; Estimated Glomerular Filt Rate > 60; Glucose 114 mg/dL (65-110); Lipase 81 U/L (23-300); Sodium 140 mmol/L (137-145)
[2024-10-10 15:54] LABS: Prothrombin Time 13.9 Seconds (11.1-14.7)
[2024-10-10 15:55] LABS: Partial Thromboplastin Time 26.8 Seconds (22.3-36.8)
[2024-10-10 15:59] LABS: Troponin I < 0.012 ng/mL (0.000-0.034)
[2024-10-10] MEDS: ASPIRIN 81 MG CHEWABLE TABLET 324 MG PO (16:55)
--- OUTSIDE RECORDS SUMMARY | 2024-10-10 17:08 | XMS_ITS | Clinical Summary ---
Author Organization [facility] [address] [place] Address [address] [place] [phone] Care Team Providers Care Gasket Supervisor Name Role Phone Unknown, Notinfile Primary Care [...] Department Care Team Description 09/26/2024 9:15 AM NISSAN SALES CONSULTANT Office Visit [facility] at [address] [phone] Jojo Reed NP Dizziness (Primary Dx); Weight loss, unintentional from Last 3 Months Social History Tobacco Use Types Packs/Day Years Used Date Smoking Tobacco: Never Assessed Sex and Gender Information Value Date Recorded Sex Assigned at Not on file Legal Sex Male 8:40 AM NISSAN SALES CONSULTANT Gender Identity Not on file Sexual Orientation Not on file Obstetrics History Last Filed Vital Signs Vital Sign Reading Time Taken Comments Blood Pressure 130/88 09/26/2024 9:29 AM NISSAN SALES CONSULTANT Pulse 85 09/26/2024 9:29 AM NISSAN SALES CONSULTANT Temperature 36.9 C (98.5 F) 09/26/2024 9:29 AM NISSAN SALES CONSULTANT Respiratory Rate 20 09/26/2024 9:29 AM NISSAN SALES CONSULTANT Oxygen Saturation 98% 09/26/2024 9:29 AM NISSAN SALES CONSULTANT Inhaled Oxygen Concentration - - Weight 79.4 kg (175 lb) 09/26/2024 9:29 AM NISSAN SALES CONSULTANT Height - - Body Mass Index - [...] A/B, COVID-19 ANTIGEN Routine 09/26/2024 9:51 AM NISSAN SALES CONSULTANT Dizziness from Last 3 Months Results * POC Influenza A/B, COVID-19 antigen (09/26/2024 9:51 AM NISSAN SALES CONSULTANT) Influenza A Ag, POC Negative Negative [facility] Influenza B Ag, POC Negative Negative [facility] COVID-19 Ag POC Presumptive Negative Presumptive Negative, Invalid [facility] Nasal 09/26/2024 9:51 AM NISSAN SALES CONSULTANT Jojo Reed NP POINT OF CARE TEST ORDERABLES Final Result Performing Organization Address City/State/[facility] Co de Phone Number [facility] [address] [place] [address], [facility] from Last 3 Months Insurance [address] CHOICE PLUS [facility] HMO/PPO Address: [facility] [address] [place] [address] Care Teams Gasket Supervisor Relationship Specialty Start Date End Date Unknown, Notinfile PCP - General 09/26/24
--- OUTSIDE RECORDS SUMMARY | 2024-10-10 17:08 | XMS_ITS | Referral Summary ---
Author Organization [address] [address] Care Team Providers Care Word Processor Technician Name Role Phone Unknown, Notinfile Primary Care Provider Unavail able Encounters Date Type Department Care Team Description 09/26/2024 9:15 AM SQUEEZER OPERATOR Office Visit [facility] at [address] [id number] Jojo Reed NP Dizziness (Primary [...] on file Legal Sex Male 8:40 AM SQUEEZER OPERATOR Gender Identity Not on file Sexual Orientation Not on file Last Filed Vital Signs Vital Sign Reading Time Taken Comments Blood Pressure 130/88 09/26/2024 9:29 AM SQUEEZER OPERATOR Pulse 85 09/26/2024 9:29 AM SQUEEZER OPERATOR Temperature 36.9 C (98.5 F) 09/26/2024 9:29 AM SQUEEZER OPERATOR Respiratory Rate 20 09/26/2024 9:29 AM SQUEEZER OPERATOR Oxygen Saturation 98% 09/26/2024 9:29 AM SQUEEZER OPERATOR Inhaled Oxygen Concentration - - Weight 79.4 kg (175 lb) 09/26/2024 9:29 AM SQUEEZER OPERATOR Height - - Body Mass Index - - Plan of Treatment Not on file Procedures Procedure Name Priority Date/Time Associated Diagnosis Comments POC INFLUENZA A/B, COVID-19 ANTIGEN Routine 09/26/2024 9:51 AM SQUEEZER OPERATOR Dizziness from Last 3 Months Results * POC Influenza A/B, COVID-19 antigen (09/26/2024 9:51 AM SQUEEZER OPERATOR) Influenza A Ag, POC Negative Negative [facility] Influenza B Ag, POC Negative Negative [facility] COVID-19 Ag POC Presumptive Negative Presumptive Negative, Invalid [facility] Nasal 09/26/2024 9:51 AM SQUEEZER OPERATOR Jojo Reed NP POINT OF CARE TEST ORDERABLES Final Result [facility] [address] [place] [address], [facility] from Last 3 Months Insurance [address] [employer] Care Teams Word Processor Technician Relationship Specialty Start Date End Date Unknown, Notinfile PCP - General 09/26/24
--- NOTE | 2024-10-10 18:06 | ECG_ITS ---
Test Date: 2024-10-10 18:14:56 Measurements Intervals [employer] Rate: 54 P: 40 OH: 146 QRS: -30 QRSD: 86 T: -37 QT: 435 QTc: 413 Interpretive Statements SINUS BRADYCARDIA CONSIDER ANTERIOR INFARCT, AGE INDETERMINATE T WAVE ABNORMALITY IN INFERIOR LEADS- CONSIDER ISCHEMIA ABNORMAL ECG Compared to ECG 10/10/2024 15:24:54 HEART RATE HAS DECREASED POSSIBLE ISCHEMIA NOW PRESENT Electronically Signed On 10-11-2024 07:13:44 BANKING MANAGEMENT CONSULTING MANAGER by George Jackson D.O.
[2024-10-10] MEDS: POTASSIUM CHLORIDE 20 MEQ ER TABLET 40 MEQ PO (18:23)
[2024-10-10 18:25] LABS: Magnesium 1.9 mg/dL (1.6-2.3)
[2024-10-10 18:36] LABS: Troponin I < 0.012 ng/mL (0.000-0.034)
--- NOTE | 2024-10-10 18:38 | ED.CHESTPAIN ---
HPI - Chest Pain General Chief Complaint: Chest Pain Stated Complaint: CP Time Seen by Provider: 10/10/24 16:58 Source: patient Mode of arrival: ambulatory Limitations: no limitations History of Present Illness HPI narrative: Patient is a 54-year-old male who presents the ED with report chest pain. Patient reports he saw a new primary care doctor last week and had outpatient labs drawn a few days ago. He was called by his primary today and told that his potassium was low at 2.9. He was given a prescription for KCl 20 meq daily. Patient reports after receiving this news this afternoon, he began having midsternal chest pain. He states he felt very overwhelmed and anxious at that time. He then prompted here for further evaluation. He denies any further chest pain upon my evaluation. Denies shortness of breath. Denies recent cough or cold symptoms. Denies pain or swelling in his legs. Denies previous history of heart issues. Related Data Allergies Allergy/AdvReac Type Severity Reaction Status Date / Time No Known Allergies Allergy Verified 10/10/24 15:13 Review of Systems Review of Systems: All systems reviewed & are unremarkable except as noted in HPI. All systems reviewed & are unremarkable except as noted in HPI and below Exam Narrative: GENERAL: Well appearing, well-nourished, non-toxic, in no acute distress. HEAD: Normocephalic, atraumatic. RESPIRATORY: Airway patent, respirations nonlabored. Clear to auscultation bilaterally, no rales, rhonchi, wheezing. CARDIOVASCULAR: Regular rate and rhythm without murmurs, rubs, or gallops. MUSCULOSKELETAL: Moves all extremities. No gross deformities. No edema. No chest wall tenderness to palpation. SKIN: Warm, dry, normal color. NEURO: A&O X3. Speech clear. Cranial nerves II-XII grossly intact. Steady gait. No ataxic movements. PSYCHIATRIC: Mildly anxious. Normal interaction. Course Vital Signs Vital signs: Vital Signs Temperature 97.5 F L 10/10/24 15:28 Pulse Rate 82 10/10/24 15:28 Respiratory Rate 20 10/10/24 15:28 Blood Pressure 129/83 10/10/24 15:28 Pulse Oximetry 100 10/10/24 15:28 Oxygen Delivery Room Air 10/10/24 15:28 Temperature 97.5 F L 10/10/24 15:28 Pulse Rate 58 L 10/10/24 19:17 Respiratory Rate 14 10/10/24 19:17 Blood Pressure 121/84 10/10/24 19:17 Pulse Oximetry 100 10/10/24 19:01 Oxygen Delivery Room Air 10/10/24 18:23 MDM - Chest Pain MDM Narrative Medical decision making narrative: Patient presented to ED with abnormal outpatient labs, chest pain. Did report feeling very anxious with the chest pain began. Vital signs are stable upon my evaluation. He denies any current pain upon my evaluation. EKG with sinus rhythm, no concerning ST changes. Troponin undetectable x2. Chest x-ray is clear. HEART score =1 based on age. Low suspicion for ACS at this time. Suspect more related to acute anxiety. Patient remains asymptomatic on re-evaluation. Laboratory studies are reassuring. Potassium today is 3.0. Given 40 mEq oral replacement in the ED. Patient was prescribed 20 mEq pills by PCP today. Recommended that he continue to take this over the next 3 days and have labs redrawn. Will place outpatient order for labs. Otherwise feel patient is stable for discharge home with close outpatient follow-up. He does have follow-up with his PCP next week. Discussed strict return precautions. Patient in agreement with plan. Feels reassured by w/u. Discharged in stable condition. Vital signs stable at time of D/C. Medical Records Data Attestation: I reviewed the patient's medical records. Lab Data Attestation: I reviewed the patient's lab results. 10/10/24 15:30 10/10/24 15:30 Labs: Lab Results 10/10/24 10/10/24 10/10/24 Range/Units 15:30 18:09 18:09 WBC 5.5 (4.5-10.0) K/mm3 RBC 4.58 L (4.6-6.20) M/mm3 Hgb 14.0 (14.0-18.0) g/dL Hct 40.3 L (42.0-52.0) % MCV 88.0 (80-100) fl MCH 30.6 (26-34) pg MCHC 34.7 (32-36) g/dl RDW 14.8 H (11.5-14.5) % Plt Count 264 (150-375) k/mm3 MPV 9.6 (7.4-10.4) fl Immature Gran % (Auto) 0.2 (0-0.5) % Neut % (Auto) 45.0 L (45.5-73.1) % Lymph % (Auto) 34.1 (18.3-44.2) % [place] % (Auto) 13.8 H (2.6-8.5) % Eos % (Auto) 6.2 H (0-4.4) % Baso % (Auto) 0.7 (0.2-1.2) % Lymph # (Auto) 1.86 (0.9-3.2) K/mm3 [place] # (Auto) 0.8 H (0.1-0.6) K/mm3 Eos # (Auto) 0.3 (0-0.3) K/mm3 Baso # (Auto) 0.0 (0.0-0.1) K/mm3 Abs Immat Gran (auto) 0.01 (0.00-0.031) K/mm3 Absolute Neuts (auto) 2.5 (1.3-6.7) K/mm3 Absolute Nucleated RBC 0.000 (0.0-0.012) K/mm3 Nucleated RBC % 0.0 (0.0-0.2) % PT 13.9 (11.1-14.7) Seconds INR 1.0 APTT 26.8 (22.3-36.8) Seconds Sodium 140 (137-145) mmol/L Potassium 3.0 L (3.4-5.0) mmol/L Chloride 103 (98-107) mmol/L Carbon Dioxide 26 (22-30) mmol/L Anion Gap 11 (4-12) mmol/L BUN 18 (9-20) mg/dL Creatinine 1.01 (0.7-1.3) mg/dL Estim Creat Clear Calc 77 ml/min Estimated GFR > 60 (59 - ) Glucose 114 H (65-110) mg/dL Calcium 9.4 (8.4-10.2) mg/dL Magnesium 1.9 Cancelled (1.6-2.3) mg/dL Total Bilirubin 0.6 (0.2-1.3) mg/dL AST 36 (17-59) U/L ALT 26 (6-50) U/L Alkaline Phosphatase 62 (38-126) U/L Troponin I < 0.012 < 0.012 (0.000-0.034) ng/mL Total Protein 7.0 (6.3-8.2) g/dL Albumin 4.0 (3.5-5.1) g/dL Lipase 81 (23-300) U/L Imaging Data Attestation: I personally reviewed and interpreted this imaging study as follows: Radiologist's impression: ITS Impressions Chest X-Ray 10/10/24 15:54 IMPRESSION: 1. No acute cardiopulmonary disease. ECG Data EKG #1: Attestation: I personally reviewed and interpreted this ECG as follows: ECG completion date: 10/10/24 ECG completion time: 15:24 EKG Interpretation: normal rate (82), sinus rhythm and non-specific ST changes Discharge Plan Discharge Clinical Impression: Atypical chest pain, Hypokalemia Patient Disposition: Home, Self-Care Condition: Stable Instructions: Antibiotic Form, Chest Pain (ED), Potassium Content of Foods List (ED), Hypokalemia (ED) Additional Instructions: Your workup here was reassuring against a cardiac cause of your chest pain. Your potassium today was 3.0. This was replaced in the ED. Take potassium supplementation 20 mEq pill over the next 3 days and obtain repeat laboratory testing within the next 1 week. Follow-up with your primary care doctor for further evaluation. Return to the ED if you experience worsening or severe chest pain, difficulty breathing, pain or swelling in legs, unable to keep down food or drink, persistent fevers, or any other symptoms of concern. Patient Language: Cypriot Prescriptions: No Action cephalexin 500 mg capsule 500 mg PO Q12H Qty: 14 0RF mupirocin 2 % ointment 1 applic topical BID Qty: 22 0RF Other Ambulatory Orders: Basic Metabolic Panel (Routine) Timeframe: 1 Week Location: Determined by Patient Ordered By: Linda Esquivel Magnesium (Routine) Timeframe: 1 Week Location: Determined by Patient Ordered By: Linda Esquivel Follow-up/Referrals: Jorge,Ketty Gutierrez [Primary Care Provider] - Stand Alone Forms: Work/School Release IP Time of Disposition: 18:50 Quality HEART score for chest pain patients History: slightly suspicious ECG: normal Age: > 45 and < 65 years Risk factors: no risk factors known Troponin: < or = to 1x normal limit Heart score: 1
== END 2024-10-10 19:27 | disposition home or self-care (01) ==
PROVIDERS: Family Medicine; Emergency Provider Physician Assistant; PCP Internal Medicine Infectious Disease
DX: R07.9 Chest pain, unspecified (principal); E87.6 Hypokalemia; R07.89 Other chest pain; R94.31 Abnormal electrocardiogram [ECG] [EKG]
CPT/HCPCS: 36415; 71046; 80053; 83690; 83735; 84484; 85025; 85610; 85730; 93005; 99284; A9270